=== PATIENT | female | born 1940 | race Caucasian/White ===

== ENCOUNTER 2019-08-02 13:49 | Outpatient (CLI) | payer MEDICARE, SELFPAY ==
--- NOTE | 2019-08-02 14:01 | XR_ITS ---
WS: [id number] Bone mineral density performed on a [facility], 08/02/2019 Clinical data: ASYMPTOMATIC MENOPAUSAL STATE, HYPOTHYROIDISM Findings: The first 4 lumbar vertebral bodies demonstrated the bone mineral density of 1.200 g/cm2 for a young adult T score of 0.2. Measurement of the left hip reveals a bone mineral density of 0.940 g/cm2 with a young adult T score of -0.5. Measurement of the right hip reveals the bone mineral density of 0.973 g/cm2 for young adult T score of -0.3. XR/XR DEXA axial skeleton* [id number] Impression: Normal bone mineral density of the lumbar spine and both hips.
== END 2019-08-02 13:50 | disposition home or self-care (01) ==
LOC: RADWPI 13:57
PROVIDERS: PCP Electrodiagnostic Medicine; Visit Provider Internal Medicine
DX: Z78.0 Asymptomatic menopausal state (principal)
CPT/HCPCS: 77080

== ENCOUNTER 2019-08-06 11:12 | Outpatient (CLI) | payer MEDICARE, SELFPAY ==
--- NOTE | 2019-08-06 11:20 | US_ITS ---
WS: [id number] Thyroid ultrasound, 08/06/2019 Clinical Data: HYPOTHYROIDISM Comparison: None. Findings: The right lobe of thyroid measures 4.3 cm x 1.6 cm x 1.5 cm. The left lobe measures 4.0 cm x 1.4 cm x 1.3 cm. There is a hypoechoic nodule in the posterior aspect of the left lobe measuring 0.71 x 0.77 x 1.07 cm. The echotexture is uniform but slightly diminished compared to the remainder of the left lobe. The isthmus measured 0.4 mm. The echotexture of the thyroid is uniform. No nodules, cyst or masses are seen. US/US thyroid [id number] Impression: 1. Negative right lobe and isthmus. 2. Small nodule in the posterior aspect of the left lobe with uniform echotextu re and well-defined border.
== END 2019-08-06 11:13 | disposition home or self-care (01) ==
LOC: RAD 11:15
PROVIDERS: PCP Electrodiagnostic Medicine; Visit Provider Electrodiagnostic Medicine
DX: E03.9 Hypothyroidism, unspecified (principal); E04.1 Nontoxic single thyroid nodule
CPT/HCPCS: 76536

== ENCOUNTER 2019-09-03 08:50 | Outpatient (CLI) | payer MEDICARE, SELFPAY ==
--- NOTE | 2019-09-03 08:45 | USCV_ITS ---
Cherrie Diaz Age: 79 Gender: F : 1940 Exam Date: 09/03/2019 09:08 Ordering Phys: Maxime Best MD ([email or web address]) Technologist: Colleen Prasad Exam Location: [facility] [place] Indication: PULMONARY HTN BP: 159 / 84 HR: 76 Rhythm: PVCs Technical Quality: Good MEASUREMENTS (Male / Female) Normal Values 2D ECHO LV Diastolic Diameter PLAX 4.6 cm 4.2 - 5.9 / 3.9 - 5.3 cm LV Systolic Diameter PLAX 3.1 cm LV Chamber Size 4.3 cm IVS Diastolic Thickness 0.8 cm 0.6 - 1.0 / 0.6 - 0.9 cm IVS Systolic Thickness 1.2 cm LVPW Diastolic Thickness 0.8 cm 0.6 - 1.0 / 0.6 - 0.9 cm LVPW Systolic Thickness 1.0 cm RV Chamber Size 3.1 cm LVOT Diameter 2.0 cm LV Ejection Fraction 2D Teich 61.5 % LV Ejection Fraction MOD 2C 51.7 % LV Ejection Fraction 2C AL 53.3 % LA Diameter 3.2 cm LA Width 3.5 cm LA Height 4.6 cm RA Width 2.7 cm RA Height 4.2 cm Aorta at Sinotubular Diameter 2.7 cm M-MODE LV Diastolic Diameter MM 5.2 cm 4.2 - 5.9 / 3.9 - 5.3 cm LV Systolic Diameter MM 2.8 cm LV Ejection Fraction MM Teich 77.7 % IVS Diastolic Thickness MM 0.5 cm 0.6 - 1.0 / 0.6 - 0.9 cm IVS Systolic Thickness MM 1.2 cm LVPW Diastolic Thickness MM 1.1 cm 0.6 - 1.0 / 0.6 - 0.9 cm LVPW Systolic Thickness MM 1.3 cm RV Diastolic Diameter MM 2.3 cm Aortic Annulus Diameter 2.5 cm LA Ao Ratio MM 1.3 MV E Point Septal Separation 0.3 cm DOPPLER AV Peak Velocity 130.0 cm/s LVOT Peak Velocity 97.0 cm/s AV Area Cont Eq vti 2.3 cm squared AV Area Cont Eq pk 2.3 cm squared MV Area PHT 3.5 cm squared Mitral E to A Ratio 0.7 MV E' Velocity 10.0 cm/s Mitral E to MV E' Ratio 8.1 Mitral E to LV E' Lateral Ratio 7.4 Mitral E to LV E' Septal Ratio 9.1 TR Peak Velocity 251.3 cm/s TR Peak Gradient 25.3 mmHg TR Mean Velocity 206.2 cm/s TR Mean Gradient 17.9 mmHg TR Velocity Time Integral 88.5 cm TV Peak E Velocity 64.0 cm/s Right Atrial Pressure 3.0 mmHg Pulmonary Artery Systolic Pressu 28.3 mmHg PV Peak Velocity 66.0 cm/s FINDINGS Left Ventricle Normal left ventricular cavity size. Normal left ventricular systolic function. No regional wall motion abnormalities. Left ventricular ejection fraction is estimated at 60 %. Grade I/IV diastolic dysfunction (abnormal relaxation filling pattern), normal to mildly elevated filling pressures. Right Ventricle The right ventricle is normal in size and function. Right Atrium The right atrium is normal in size. Left Atrium The left atrium is normal in size. Mitral Valve Structurally normal mitral valve without significant stenosis or prolapse. There is no mitral regurgitation. Aortic Valve Severe aortic valve calcification. No aortic valve stenosis. Trace aortic valve regurgitation. Tricuspid Valve Mild tricuspid valve regurgitation. Pulmonic Valve Structurally normal pulmonic valve without significant stenosis. There is no pulmonic regurgitation. Pericardium Normal pericardium without effusion. Aorta Normal ascending aorta dimension. CONCLUSIONS 1-Normal left ventricular cavity size. Normal left ventricular systolic function. No regional wall motion abnormalities. Left ventricular ejection fraction is estimated at 60 %. Grade I/IV diastolic dysfunction (abnormal relaxation filling pattern), normal to mildly elevated filling pressures. 2-Mild tricuspid valve regurgitation. 3-Structurally normal mitral valve without significant stenosis or prolapse. There is no mitral regurgitation. 4-Severe aortic valve calcification. No aortic valve stenosis. Trace aortic valve regurgitation. 5-There is no pericardial effusion. 6-Pulmonary artery systolic pressure is within normal limits. 7-Right atrial pressure is around 5 mm of mercury. 8-No significant change since the prior echocardiogram study of. Maxime Best MD (Electronically Signed) Final Date: 03 September 2019 17:49 S
--- NOTE | 2019-09-03 09:30 | PC.NURSE ---
STRESS TEST NOTE THIS NURSE HAD A FACE TO FACE CONVERSATION WITH DR DENNIS ABOUT THE ORDERED STRESS TEST. DR DENNIS STATED THAT THE TEST WAS ORDERED INCORRECTLY AND TO CHANGE IT FROM A PLAIN TREADMILL STRESS TEST TO A EXERCISE SESTAMIBI STRESS TEST (JOSEFA) LONG THE PATIENT CONSENTED. THE PATIENT WAS WALKING OUT OF THE ECHO ROOM AND SPOKE WITH DR DENNIS IN PERSON STATING IT WAS OK TO PROCEED WITH AN JOSEFA. BESSY FROM NUCLEAR MEDICINE WAS NOTIFIED.
--- NOTE | 2019-09-03 09:48 | ECG_ITS ---
NAME OF STUDY: EXERCISE SESTAMIBI STRESS TEST INDICATION: SOB, EXERCISE DATA: The patient was exercised by Torrey protocol. Baseline heart rate was 71 beats per minute. Baseline blood pressure was 109/81 millimeters of mercury. Target heart rate was 141 beats per minute. Maximum heart rate achieved was 128, which was 90 % of the target heart rate. Maximum blood pressure was 204/109 millimeters of mercury. Total exercise time was 5 minutes. Maximum METs achieved was 7.0, maximum VO2 was 24.5. The reason for ending the test was excellent effort achieved. The patient complained of ramus of breath during the stress test, which then resolved at the end of the test. ELECTROCARDIOGRAM: BASELINE: Sinus rhythm, normal axis, no significant ST-T changes at the baseline noted. EXERCISE: At the peak exercise level, No significant ST-T changes suggestive of ischemia noted. RECOVERY: During the recovery period, heart rate dropped appropriately. No significant ST-T changes in the recovery suggestive of ischemia noted. CONCLUSION: 1. Exercise capacity fair. 2. Heart rate response was appropriate. 3. Blood pressure response was hypertensive. 4. Symptoms not suggestive of ischemia. 5. Electrocardiogram portion of the stress test was not suggestive of ischemia. 6. Nuclear scan will be documented separately. Electronically Signed On 09-05-2019 19:14:24 CDT by Maxime Best M.D. [id number]
--- NOTE | 2019-09-03 09:48 | NMCV_ITS ---
NM vale perf SPECT r/s* [id number] Cherrie Diaz Age: 79 Gender: F : 1940 Exam Date: 09/03/2019 09:48 Ordering Phys: Maxime Best MD ([email or web address]) Technologist: NIKOLAS William Exam Location: [facility] Indications: SHORTNESS OF BREATH STRESS TEST [facility] IMAGE PROTOCOL Rest/Stress 1 Exercise Day Radiopharmaceutical Dose (mCi) Administration Site Administered by Rest: Tc-99m 10.6 IV NIKOLAS Blackmon Sestamirossy Stress:Tc-99m 32.2 IV NIKOLAS Blackmon Sestamirossy Rest: 03-Sep-2019 60 Discovery 630 Stress: 03-Sep-2019 15 Discovery 630 Radiopharmaceutical was injected at 85 % maximum heart rate. Images obtained in supine and prone position. SPECT RESULTS Technical Quality: Excellent Raw Data Analysis: Normal Image Corrections: No attenuation or motion correction applied Summed Stress Score: 0 Summed Rest Score: 0 Summed Difference Score: 0 PERFUSION FINDINGS FUNCTIONAL RESULTS (calculated via Gated SPECT) Stress Image LV EF (%): 74 Stress EDV (mL):65 TID: 0.98 Stress ESV (mL):17 Rest Image LV EF (%): 74 FUNCTIONAL FINDINGS: There is normal left ventricular systolic function. IMPRESSIONS Myocardial perfusion imaging is normal and low probability for obstructive coronary artery disease. EKG segment will be documented separately. Maxime Best MD (Electronically Signed) Final Date: 03 September 2019 17:52 S
[2019-09-03 09:53] VITALS: BMI 30.2
[2019-09-03 11:30] VITALS: BP 181/86; PULSE 81
== END 2019-09-03 08:51 | disposition home or self-care (01) ==
LOC: US 08:51
PROVIDERS: Family Provider Electrodiagnostic Medicine; PCP Electrodiagnostic Medicine; Visit Provider Internal Medicine Cardiovascular Disease
DX: I08.2 Rheumatic disorders of both aortic and tricuspid valves (principal); I49.3 Ventricular premature depolarization; R06.02 Shortness of breath; R07.9 Chest pain, unspecified
CPT/HCPCS: 78452; 93017; 93306; A9500

== ENCOUNTER 2020-05-17 07:37 | Emergency (ER) | payer MEDICARE, SELFPAY ==
--- NOTE | 2020-05-17 07:44 | XRR_ITS ---
PROCEDURE INFORMATION: Exam: XR Chest, 1 View Exam date and time: 05/17/2020 7:47 AM Age: 79 years old Clinical indication: Other: Weakness TECHNIQUE: Imaging protocol: XR of the chest Views: 1 view. COMPARISON: CR Chest 1 [place] [id number] 04/29/2019 6:24 PM FINDINGS: Lungs: Unremarkable. No consolidation. Pleural space: Unremarkable. No pleural effusion. No pneumothorax. Heart/Mediastinum: Unremarkable. No cardiomegaly. Bones/joints: Unremarkable. XR/XR chest 1V portable [id number] IMPRESSION: No acute findings.
--- NOTE | 2020-05-17 07:46 | ECG_ITS ---
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 Measurements Intervals [place] Rate: 69 P: 53 MA: 181 QRS: 5 QRSD: 88 T: 34 QT: 382 QTc: 411 Interpretive Statements SINUS RHYTHM POSSIBLE LEFT ATRIAL ENLARGEMENT [-0.1mV P WAVE IN V1/V2] Compared to ECG 04/29/2019 19:22:09 No significant changes Electronically Signed On 05-17-2020 11:15:09 ASSISTANT FRONT OFFICE MANAGER by Ronald Kate M.D. [id number]
[2020-05-17 07:49] VITALS: BP 162/84; PULSE 69; RESP 14; TEMP 36.5; O2SAT 95; BMI 28.3
[2020-05-17 07:50] VITALS: BP 148/91; BP 173/85; BP 178/80; PULSE 69; PULSE 76; PULSE 84
[2020-05-17 08:29] LABS: Basophils # 0.1 10^3/uL (0.0-0.1); Basophils % 0.9 %; Eosinophils # 0.4 10^3/uL (0.0-0.8); Eosinophils % 3.4 %; Hematocrit 51.7 % (37.0-47.0); Hemoglobin 16.5 g/dL (11.5-15.3); Lymphocytes # 3.7 10^3/uL (0.8-4.8); Lymphocytes % 32.6 %; Mean Corpuscular HGB Conc 31.9 g/dL (30.0-36.0); Mean Corpuscular Hemoglobin 30.7 pg (28.0-34.0); Mean Corpuscular Volume 96.3 fL (81-99); Mean Platelet Volume 11.2 fL (7.4-10.4); Monocytes # 0.9 10^3/uL (0.2-0.9); Neutrophils # 6.28 10^3/uL (1.8-7.7); Neutrophils % 54.6 %; Nucleated Red Blood Cells % 0 %; Platelet Count 323 10^3/cmm (130-400); Red Blood Count 5.37 10^6/uL (4.1-5.3); Red Cell Distribution Width 14.8 % (12.1-15.1); White Blood Count 11.5 10^3/uL (4.0-10.0)
--- NOTE | 2020-05-17 08:29 | ED_ITS ---
HPI - Weakness General: Chief complaint: Nausea/Vomiting/Diarrhea Stated complaint: WEAKNESS; NAUSEA Time Seen by Provider: 05/17/20 07:43 Source: patient and EMS Mode of arrival: EMS Limitations: no limitations History of Present Illness: HPI Narrative: Cherrie is a very nice 79-year-old female who comes in for waking up feeling weak and dizzy this morning. She states that she felt fine yesterday without any problems or illness. She woke up and she felt nauseated and just weak all over. Denies any fevers, chills, cough, sore throat, loss of sense of taste or smell or any other respiratory symptoms. Patient noticed that she just felt like at times she was so weak she could pass out. She noticed occasional irregular beat but denied any rapid palpitations, chest pain or heaviness pressure sensation in her chest. Patient has a history of bradycardia and she noticed her heart rate was in the 30s today but it has been slower than that in the past. She has been seen by Dr. Servin referred to an operations planner in [place] but no definitive diagnosis was made other than intermittent ventricular bigeminy. EMS brought the patient in and noted a heart rate anywhere from 30-60 but mostly in the 60s and shortly before arrival in the 70s here. She did have frequent PVCs. They checked her blood sugar and it was 174. Otherwise the patient states she feels better at this time just mildly weak. Associated symptoms: Reports nausea; Denies chest pain, chills, confusion, melena, diaphoresis, dysuria, easy bruising, fever(s), headache(s), syncope or vomiting Review of Systems Const: Denies: fever(s), chills, body aches, fatigue, malaise or diaphoresis Eyes: Denies: change in vision, blurry vision, photophobia, eye discomfort, eye discharge, eye redness or yellow eyes ENMT: Denies: throat pain, odynophagia, hoarseness, swelling of lips/tongue, ear or mastoid pain, ear discharge, change in hearing or nasal discharge Card: Reports: palpitations and pre-syncope; Denies: chest pain, irregular heart rhythm, edema, lightheadedness, syncope, dyspnea on exertion or orthopnea Resp: Denies: dyspnea, productive cough, non-productive cough, wheezing, hemoptysis or chest congestion GI: Reports: nausea; Denies: abdominal pain, vomiting, hematemesis, coffee ground emesis, heartburn, diarrhea, constipation, GI cramping, hematochezia or melena : Denies: flank pain, dysuria, urinary frequency, urinary urgency or hematuria Musc: Denies: neck pain, back pain, extremity pain, extremity swelling, joint pain, joint swelling, joint redness, joint warmth or joint stiffness Skin/Breast: Denies: rash, pruritus, erythema, skin pain or skin tenderness Neuro: Denies: headache(s), numbness in extremities, weakness in extremities, sensory changes, lack of coordination, difficulty walking, dizziness, vertigo, confusion, Slurred speech present or seizure-like activity J Luis/Lymph: Denies: easy bruising, easy bleeding, petechiae, purpura or enlarged lymph nodes All/Imm: Denies: urticaria, throat swelling, tongue swelling, facial swelling or acute wheezing PFSH ED PFSH: Medical History (Updated 05/17/20 @ 10:57 by Hanane Contreras) CAD (coronary artery disease) HTN (hypertension) Shortness of breath Ventricular bigeminy Family History Mother Myocardial infarction Heart disease Brother Pacemaker X2 Sister Heart disease Son CHF (congestive heart failure) Grandmother Cancer Social History Smoking and tobacco status: never smoked History of recent travel: No Physical Exam Const: COMMON NORMALS: no acute distress, patient oriented x3, no limitations and alert GENERAL APPEARANCE: cooperative HENMT: COMMON NORMALS: normocephalic, atraumatic, external ears normal, EAC's normal and Normal external nose present HEAD & SCALP: normal to inspection, normocephalic and atraumatic FACE & SINUS: normal facial exam and face symmetric NOSE: Normal external nose present and Normal nares present EXTERNAL EAR: Yes external ears normal EXTERNAL AUDITORY CANAL: EAC's normal MOUTH: Normal oral and palatal mucosa present, lip normal and tongue normal Eye: COMMON NORMALS: Equal, round and reactive pupils present and conjunctivae normal GENERAL EYE: appearance normal, both eyes and all related structures ALIGNMENT: Yes alignment normal PERIORBITAL: periorbital findings normal EYELID: eyelids normal CONJUNCTIVA: Yes conjunctivae normal SCLERA: sclerae normal PUPIL: Yes Equal, round and reactive pupils present Neck/C-Spine: COMMON NORMALS: full ROM, no lymphadenopathy, supple, no meningeal signs and no JVD GENERAL: Yes normal visual inspection and Yes trachea midline Chest: COMMONS NORMALS: normal inspection of the chest and normal palpation of entire chest wall Resp: COMMON NORMALS: normal respiratory effort, No retractions, No use of accessory muscles and clear to auscultation bilaterally EFFORT & INSPECTION: Yes able to speak in complete sentences and Yes symmetric chest movement AUSCULTATION: clear to auscultation bilaterally, no crackles, no rales, no rhonchi and no wheezes Cardio: COMMON NORMALS: no JVD, regular rate, regular rhythm, S1 normal heart sound present and S2 normal heart sound present RATE: regular rate RHYTHM: regular rhythm HEART SOUNDS: S1 normal heart sound present, S2 normal heart sound present, no click, no gallops, no murmurs and no rubs GI: COMMON NORMALS: Soft to palpation and No hepatosplenomegaly present PALPATION: Yes Soft to palpation, No Tenderness to palpation present (GI), No Guarding due to palpation present (GI), No Rigid due to palpation, Yes No hepatosplenomegaly present, No Hernia present, No Palpable mass present and No Pulsatile mass present : COMMON NORMALS: Yes no CVA tenderness BLADDER/KIDNEY EXAM: Yes no CVA tenderness EXTERNAL FEMALE EXAM: No Hernia present Back/Pelvis: COMMON NORMALS: no CVA tenderness, thoracic and lumbar spine normal to inspection, no thoracic nor lumbar tenderness and thoraco-lumbar ROM normal Extremity: COMMON NORMALS: normal to inspection, full ROM, capillary refill normal, no joint enlargement, no clubbing, cyanosis or edema and no calf tenderness Neuro: COMMON NORMALS: patient oriented x3, CN's II-XII intact bilaterally, moves all extremities, no focal motor deficits and no sensory deficits noted SENSORIUM/ORIENTATION: Yes alert MENINGEAL SIGNS: Yes no meningeal signs SPEECH: speech normal Psych: COMMON NORMALS: mental status grossly normal, Normal thought process present, cooperative, normal affect, speech normal and activity/motor behavior normal SPEECH: Yes normal speech THOUGHT PROCESS: Normal thought process present Skin: COMMON NORMALS: no rashes or lesions noted, turgor normal, no jaundice, no petechiae and no mottling GENERAL SKIN EXAM: no rashes or lesions noted and turgor normal Course Vital Signs: Vital signs: Vital Signs Temperature 97.7 F 05/17/20 07:49 Pulse Rate 78 05/17/20 11:27 Respiratory Rate 16 05/17/20 11:27 Blood Pressure 136/80 05/17/20 11:27 Pulse Oximetry 97 05/17/20 11:27 MDM - Weakness MDM Narrative: Medical decision making narrative: 1057 -the patient is feeling better and is ready to go home. She no longer feels weak. Her EKG is normal here. Patient has had urinary frequency but no other symptoms of UTI. She does have a contaminated specimen and I have recommended we perform a catheterized specimen to definitively rule in or out UTI but she refuses. I will therefore have to go ahead and treat her for UTI. It is possible that this is real that she will need treatment and could be causing her weakness. I see no evidence of acute coronary syndrome. She is never had chest pain or shortness of breath. She agrees to return should her symptoms change or worsen and she will follow-up with her doctor for recheck. She denies having any other questions or concerns. 1113 - Lab Data: Attestation: I reviewed the patient's lab results. Labs: Lab Results 05/17/20 05/17/20 05/17/20 Range/Units 07:45 07:45 07:45 WBC 11.5 H (4.0-10.0) 10^3/ uL RBC 5.37 H (4.1-5.3) 10^6/u L Hgb 16.5 H (11.5-15.3) g/dL Hct 51.7 H (37.0-47.0) % MCV 96.3 (81-99) fL MCH 30.7 (28.0-34.0) pg MCHC 31.9 (30.0-36.0) g/dL RDW 14.8 (12.1-15.1) % Plt Count 323 (130-400) 10^3/c mm MPV 11.2 H (7.4-10.4) fL Neut % (Auto) 54.6 % Lymph % (Auto) 32.6 % [place] % (Auto) 8.0 % Eos % (Auto) 3.4 % Baso % (Auto) 0.9 % Neut # (Auto) 6.28 (1.8-7.7) 10^3/u L Lymph # (Auto) 3.7 (0.8-4.8) 10^3/u L [place] # (Auto) 0.9 (0.2-0.9) 10^3/u L Eos # (Auto) 0.4 (0.0-0.8) 10^3/u L Baso # (Auto) 0.1 (0.0-0.1) 10^3/u L Nucleated RBC % (a uto) 0 % Nucleated RBCs # 0.0 /100WBC Sodium 137 (136-145) mmol/L Potassium 4.4 (3.5-5.1) mmol/L Chloride 99 (98-107) mmol/L Carbon Dioxide 26 (22-29) mmol/L Anion Gap 16.4 (5-19) BUN 32 H (8-23) mg/dL Creatinine 1.1 H (0.5-0.9) mg/dL GFR Calculation Not Reportable Glucose 133 H (65-115) mg/dL Calculated Osmolal ity 293 (285-295) mOsm/k g Calcium 10.2 (8.5-10.5) mg/dL Magnesium 2.4 H (1.7-2.3) mg/dL Total Bilirubin 0.3 (0.15-1.2) mg/dL AST 20 (0-32) U/L ALT 18 (0-33) U/L Alkaline Phosphata se 77 (35-105) IU/L Troponin T Baselin e 17 H (0-10) ng/L Troponin T 120 [place] (0-10) ng/L Delta Troponin T (0-10) ABS# Total Protein 7.6 (6.6-8.7) g/dL Albumin 4.7 (3.5-5.2) g/dL Globulin 2.9 (1.3-4.6) g/dL Lipase 53 (13-60) U/L TSH 7.29 H (0.27-4.20) uIU/ mL Free T4 1.00 (0.82-1.77) ng/d L Urine Color (Yellow) Urine Appearance (CLEAR) Urine pH (5-7) Ur Specific Gravit y (1.005-1.030) Urine Protein (Negative) Urine Glucose (UA) (Normal) Urine Ketones (Negative) Urine Blood (Negative) Urine Nitrate (Negative) Urine Bilirubin (Negative) Urine Urobilinogen (Negative) mg/dL Ur Leukocyte Subha ase (Negative) Urine RBC (0-2) /hpf Urine WBC (0-5) /hpf Ur Squamous Epith Cells (0-5) /hpf Amorphous Sediment Urine Bacteria (NONE) /hpf Urine Mucus /hpf 05/17/20 05/17/20 Range/Units 08:47 09:29 WBC (4.0-10.0) 10^3/ uL RBC (4.1-5.3) 10^6/u L Hgb (11.5-15.3) g/dL Hct (37.0-47.0) % MCV (81-99) fL MCH (28.0-34.0) pg MCHC (30.0-36.0) g/dL RDW (12.1-15.1) % Plt Count (130-400) 10^3/c mm MPV (7.4-10.4) fL Neut % (Auto) % Lymph % (Auto) % [place] % (Auto) % Eos % (Auto) % Baso % (Auto) % Neut # (Auto) (1.8-7.7) 10^3/u L Lymph # (Auto) (0.8-4.8) 10^3/u L [place] # (Auto) (0.2-0.9) 10^3/u L Eos # (Auto) (0.0-0.8) 10^3/u L Baso # (Auto) (0.0-0.1) 10^3/u L Nucleated RBC % (a uto) % Nucleated RBCs # /100WBC Sodium (136-145) mmol/L Potassium (3.5-5.1) mmol/L Chloride (98-107) mmol/L Carbon Dioxide (22-29) mmol/L Anion Gap (5-19) BUN (8-23) mg/dL Creatinine (0.5-0.9) mg/dL GFR Calculation Glucose (65-115) mg/dL Calculated Osmolal ity (285-295) mOsm/k g Calcium (8.5-10.5) mg/dL Magnesium (1.7-2.3) mg/dL Total Bilirubin (0.15-1.2) mg/dL AST (0-32) U/L ALT (0-33) U/L Alkaline Phosphata se (35-105) IU/L Troponin T Baselin e (0-10) ng/L Troponin T 120 [place] 14.86 H (0-10) ng/L Delta Troponin T -2.14 L (0-10) ABS# Total Protein (6.6-8.7) g/dL Albumin (3.5-5.2) g/dL Globulin (1.3-4.6) g/dL Lipase (13-60) U/L TSH (0.27-4.20) uIU/ mL Free T4 (0.82-1.77) ng/d L Urine Color Yellow (Yellow) Urine Appearance Hazy A (CLEAR) Urine pH 5 (5-7) Ur Specific Gravit y 1.005 (1.005-1.030) Urine Protein Neg (Negative) Urine Glucose (UA) Norm (Normal) Urine Ketones Negative (Negative) Urine Blood 2+ H (Negative) Urine Nitrate Negative (Negative) Urine Bilirubin Neg (Negative) Urine Urobilinogen Norm (Negative) mg/dL Ur Leukocyte Subha ase 2+ H (Negative) Urine RBC 10-15 H (0-2) /hpf Urine WBC 55-80 H (0-5) /hpf Ur Squamous Epith Cells 15-25 H (0-5) /hpf Amorphous Sediment Not Reportable Urine Bacteria 2+ H (NONE) /hpf Urine Mucus 1+ /hpf Imaging Data^: CXR: Attestation: I personally reviewed and interpreted this imaging study as follows: My impression: No acute cardiopulmonary findings. EKG Data^: EKG 1: Attestation: I personally reviewed and interpreted this EKG as follows: EKG interpretation date: 05/17/20 EKG interpretation time: 07:49 Interpretation: Normal sinus rhythm at 69 beats a minute, no blocks, normal intervals, no acute ST-T wave changes. EKG 2: Attestation: I personally reviewed and interpreted this EKG as follows: EKG interpretation date: 05/17/20 EKG interpretation time: 11:04 Interpretation: Normal sinus rhythm at 76 beats a minute, no blocks, normal axis, nonspecific ST T wave changes. PVCs noted. Discharge Plan Discharge Patient Disposition: Home Clinical Impression: Weakness generalized UTI (urinary tract infection) Qualifiers: Urinary tract infection type: site unspecified Hematuria presence: with hematuria Qualified Code(s): N39.0 - Urinary tract infection, site not specified Condition: Stable Prescriptions: New cefdinir 300 mg capsule 300 mg PO Q12H 10 Days Qty: 20 RF: 0 No Action aspirin [Adult Low Dose Aspirin] 81 mg tablet,delayed release (DR/EC) 81 mg PO DAILY RF: 0 lisinopril 2.5 mg tablet 2.5 mg PO BID 30 Days Qty: 60 RF: 6 Discharge Orders: Discharge Order (Routine); Ordered 05/17/20 Ordered By: Hanane Contreras Referrals: Timothy Weber DO [Primary Care Provider] - 1-3 days Discharge Diet: Advance as tolerated Discharge Activity: Increase activity as tolerated Patient Instructions: Urinary Tract Infection in Women (ED), Weakness (ED) Activity Restrictions/Additional Instructions: Please return to the ER immediately for any of the signs or symptoms listed on your discharge instruction sheets, worsening/changing of your symptoms, you are not getting better as quickly as expected, or for ANY other cause or concerns. Take your antibiotics as I have prescribed. Push oral fluids to help keep yourself hydrated. Return to the ER for increased weakness, new onset of chest pain, fever, vomiting, or for any other cause for concern. Coding Level of Care Code ED Senior Business Objects Developer for Rajwinder Fwd Exam Comprehensive
[2020-05-17] MEDS: sodium chloride 0.9% 1,000 ML 999 ML IV (08:54)
[2020-05-17 08:55] LABS: Troponin(5th) Baseline 17 ng/L (0-10)
[2020-05-17 09:26] LABS: Alanine Aminotransferase 18 U/L (0-33); Albumin Level 4.7 g/dL (3.5-5.2); Alkaline Phosphatase 77 IU/L (35-105); Anion Gap 16.4 (5-19); Aspartate Amino Transferase 20 U/L (0-32); Blood Urea Nitrogen 32 mg/dL (8-23); Calcium 10.2 mg/dL (8.5-10.5); Carbon Dioxide 26 mmol/L (22-29); Chloride 99 mmol/L (98-107); Globulin 2.9 g/dL (1.3-4.6); Glucose 133 mg/dL (65-115); Lipase 53 U/L (13-60); Magnesium 2.4 mg/dL (1.7-2.3); Osmolality Calculated 293 mOsm/kg (285-295); Potassium 4.4 mmol/L (3.5-5.1); Sodium 137 mmol/L (136-145); Thyroid Stimulating Hormone 7.29 uIU/mL (0.27-4.20); Total Bilirubin 0.3 mg/dL (0.15-1.2); Total Protein 7.6 g/dL (6.6-8.7)
[2020-05-17 10:17] LABS: Troponin 5 2HR 14.86 ng/L (0-10)
[2020-05-17 10:22] LABS: Troponin 5 2HR Delta -2.14 ABS# (0-10)
[2020-05-17 10:40] LABS: Urine Color Yellow (Yellow)
[2020-05-17 10:41] LABS: Add Urine Microscopic? YES; Bilirubin Urine Neg (Negative); Blood Urine 2+ (Negative); Glucose Urine UA Norm (Normal); Ketones Urine Negative (Negative); Leukocyte Esterase Urine 2+ (Negative); Nitrate Urine Negative (Negative); Protein Urine Neg (Negative); Specific Gravity, Urine 1.005 (1.005-1.030); Urine Appearance Hazy (CLEAR); Urobilinogen Urine Norm (Negative); pH Urine 5 (5-7)
[2020-05-17 10:43] LABS: Add Urine Culture? No; Bacteria Urine 2+ /hpf; Mucus Urine 1+ /hpf; Squamous Epithelial Cell Urine 15-25 /hpf (0-5); WBC Urine 55-80 /hpf (0-5)
[2020-05-17] MEDS: cefTRIAXone 1,000 MG in sodium chloride 0.9% (plus) 50 ML 100 MG IV (10:45)
[2020-05-17 11:27] VITALS: BP 136/80; PULSE 78; RESP 16; O2SAT 97
--- NOTE | 2020-05-17 13:46 | ECG_ITS ---
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 Measurements Intervals [place] Rate: 76 P: 49 IA: 174 QRS: -1 QRSD: 89 T: 13 QT: 394 QTc: 445 Interpretive Statements SINUS RHYTHM WITH OCCASIONAL VENTRICULAR PREMATURE COMPLEXES POSSIBLE LEFT ATRIAL ENLARGEMENT [-0.1mV P WAVE IN V1/V2] Compared to ECG 05/17/2020 07:49:17 Ventricular premature complex(es) now present Electronically Signed On 05-17-2020 18:55:55 LOOP SEWER by Ronald Kate M.D. [id number]
== END 2020-05-17 11:27 | disposition home or self-care (01) ==
PROVIDERS: Emergency Provider Emergency Medicine; PCP Electrodiagnostic Medicine
DX: N39.0 Urinary tract infection, site not specified (principal); R53.1 Weakness; Z79.82 Long term (current) use of aspirin; I25.10 Atherosclerotic heart disease of native coronary artery without angina pectoris; I10 Essential (primary) hypertension
CPT/HCPCS: 12345; 36415; 71045; 80053; 81001; 83690; 83735; 84439; 84443; 84484; 85025; 87086; 93005; 96365; 99283; 99284; J0696; J7030

== ENCOUNTER 2020-06-09 11:54 | Outpatient (CLI) | payer MEDICARE, SELFPAY ==
--- NOTE | 2020-06-09 12:11 | XR_ITS ---
WS: [id number] Lumbar spine, 3 views, 06/09/2020 Clinical Data: CHRONIC LUMBAR BACK PAIN Comparison: None. Findings: No compression fractures are seen. There is a levorotoscoliosis. There is anterior spurring of the L1 -L4 vertebral bodies The transverse processes and SI joints are normal.There is a subluxation of 0.4 cm of L4 on L5. There is loss of vertebral body height of the L1 vertebral body which may be an old f racture of the superior cortex. No disc space narrowing is seen. XR/XR lumbar spine 2-3V* [id number] Impression: 1. Levoscoliosis. 2. Osteoarthritis of L1-L4. 3. 0.4 cm subluxation of L4 on L5. 4. Slight loss of vertebral body height of L1 with an old superior cortical fr acture.
--- NOTE | 2020-06-09 12:11 | XR_ITS ---
WS: [id number] Right knee, 3 views, 06/09/2020 Clinical Data: ACUTE R KNEE PAIN Comparison: None. Findings: There is medial joint compartment narrowing with small spurs of the medial femoral condyle and medial tibial plateau. No fractures or dislocations are seen. There is a small spur of the posterior superior patella. The s oft tissues are normal. 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
== END 2020-06-09 11:55 | disposition home or self-care (01) ==
PROVIDERS: PCP Electrodiagnostic Medicine; Visit Provider Electrodiagnostic Medicine
DX: M47.816 Spondylosis without myelopathy or radiculopathy, lumbar region (principal); M17.11 Unilateral primary osteoarthritis, right knee
CPT/HCPCS: 72100; 73562

== ENCOUNTER 2020-07-06 13:18 | Outpatient (CLI) | payer MEDICARE, SELFPAY ==
--- NOTE | 2020-07-06 13:59 | MR_ITS ---
WS: [id number] MRI RIGHT KNEE HISTORY: DERANGEMENT OF ANTERIOR HORN OF MEDIAL MENISCUS LT KNEE COMPARISON: Knee radiograph 06/09/2020. Anterior cruciate ligament: Intact. Posterior cruciate ligament: Intact. Medial collateral ligament: Increased T2 signal both sides of the MCL. MCL is being displaced from th e joint line by an extruded meniscus and osteophyte disease. No tear. Posterior lateral corner structures: Intact. Medial menisci: There is no body of the meniscus. Meniscus is extruded and there is no meniscal body within the central joint space consistent with a torn and extruded meniscus. Lateral meniscus: Intact. Normal signal, size and shape. Extensor mechanism: Distal quadriceps tendon and patellar tendons are intact. Fluid and soft tissue: Moderate to large joint effusion. Soft tissue edema surrounding the knee. Lobu lated Thomposn's cyst extends over a length of 4.6 cm. Osseous and articular structures: Patellofemoral compartment: Superficial defects within a large portion of the cartilage over the late ral patellar facet. No marrow edema. Medial compartment: Marked narrowing of the medial compartment. There is near bone upon bone with los s of the cartilage and marrow edema on both sides of the joint. Extruded meniscus contacts and displa malena the MCL. Lateral compartment: Negative. MR/MR knee RT wo con* [id number] IMPRESSION: 1. Moderate to severe internal derangement medial compartment. Meniscal extrus ion from the joint line, loss of cartilage, marrow edema and osteophytes. 2. Lateral patellar facet cartilage defects. 3. Large suprapatellar joint effusion and soft tissue edema around the knee. 4. Moderate-sized lobulated Thompson's cyst.
== END 2020-07-06 13:19 | disposition home or self-care (01) ==
LOC: RADWPI 13:23
PROVIDERS: PCP Electrodiagnostic Medicine; Visit Provider Electrodiagnostic Medicine
DX: M23.212 Derangement of anterior horn of medial meniscus due to old tear or injury, left knee (principal); M71.21 Synovial cyst of popliteal space [Baker], right knee; M25.461 Effusion, right knee
CPT/HCPCS: 73721

== ENCOUNTER 2020-10-28 11:28 | Outpatient (RCR) | payer MEDICARE, SELFPAY | END 2020-11-23 23:59 | disposition home or self-care (01) | LOC: SPT 11:28 | PROVIDERS: PCP Electrodiagnostic Medicine; Referring Provider Orthopaedic Surgery; Visit Provider Orthopaedic Surgery | DX: Z47.1 Aftercare following joint replacement surgery (principal); Z96.651 Presence of right artificial knee joint | CPT/HCPCS: 97110; 97161 ==

== ENCOUNTER 2020-11-24 06:00 | Outpatient (RCR) | payer MEDICARE, SELFPAY | END 2020-12-23 23:59 | disposition home or self-care (01) | LOC: SPT 06:00 | PROVIDERS: PCP Electrodiagnostic Medicine; Referring Provider Orthopaedic Surgery; Visit Provider Orthopaedic Surgery | DX: Z47.1 Aftercare following joint replacement surgery (principal); Z96.651 Presence of right artificial knee joint | CPT/HCPCS: 97110 ==

== ENCOUNTER 2023-05-06 04:14 | Emergency (ER) | payer MEDICARE, SELFPAY ==
[2023-05-06 04:20] VITALS: BP 169/93; PULSE 82; RESP 16; TEMP 36.5; O2SAT 98
[2023-05-06 04:30] VITALS: BP 169/93; PULSE 79; RESP 20; O2SAT 96
--- NOTE | 2023-05-06 05:42 | ED_ITS ---
HPI - Skin/Abscess/Foreign Bdy General: Chief complaint: Skin/Abscess/Foreign Body Stated complaint: Allergic Reaction Time Seen by Provider: 05/06/23 04:42 History of Present Illness: 82-year-old female with an itchy rash mainly on her trunk since . This will be day 3. No increased trouble breathing. No vomiting. No significant diarrhea. No swelling of the face or tongue. She does not know the cause. She did eat some new food on , a new sauce at [employer]. Associated symptoms: Deny chills, fever(s), nausea or vomiting Review of Systems Const: Denies: fever(s), chills or body aches Eyes: Denies: change in vision Card: Denies: chest pain or palpitations Resp: Denies: dyspnea, productive cough, non-productive cough or wheezing GI: Denies: abdominal pain, nausea, vomiting, diarrhea or hematochezia : Denies: difficulty voiding Skin/Breast: Reports: rash, pruritus and erythema Neuro: Denies: headache(s), weakness in extremities, dizziness or confusion PFSH ED PFSH: Medical History CAD (coronary artery disease) Hypertension Diagnosed in 2017 and is being managed by her primary care provider. She does not have a jewel flat surfacer however did see Dr. Servin in the past No pertinent past medical history Denies diabetes, asthma, seizures, DVT/PE PCP: Dr. Weber Surgical History Hx of tonsillectomy As a child S/P excision of ganglion cyst she had ganglion cysts removed from both the right and left wrist S/P eye surgery Had bilateral surgery with placement of lens to correct her vision in 2000. S/P hysterectomy 04/03/2014- [facility], [facility] for complex endometrial hyperplasia on an endometrial polyp. Done by Dr. Hollis at [facility] [place]. No immediate operative complications. pathology showed simple hyperplasia and endometrium but was otherwise normal. No further intervention needed S/P right knee arthroscopy had right knee surgery for torn meniscus in 2012 Family History Mother Heart disease Hyperlipidemia Hypertension Brother Heart disease Sister Heart disease Diabetes Son Heart disease Stroke Denies family history of Colon cancer Ovarian cancer Breast cancer Uterine cancer Thyroid disease Physical Exam Const: COMMON NORMALS: no acute distress GENERAL APPEARANCE: cooperative; not ill appearing and not frail appearing HENMT: COMMON NORMALS: normocephalic, atraumatic and Normal external nose present HEAD & SCALP: normocephalic and atraumatic FACE & SINUS: normal facial exam and face symmetric NOSE: Normal external nose present Eye: COMMON NORMALS: Equal, round and reactive pupils present and EOMs intact bilaterally PUPIL: Yes Equal, round and reactive pupils present Neck/C-Spine: GENERAL: Yes trachea midline Chest: CHEST: Yes Symmetrical chest wall rise Resp: COMMON NORMALS: normal respiratory effort, No retractions, No use of accessory muscles and clear to auscultation bilaterally AUSCULTATION: clear to auscultation bilaterally Cardio: COMMON NORMALS: regular rate and regular rhythm RATE: regular rate RHYTHM: regular rhythm GI: COMMON NORMALS: Normal to inspection, nondistended, normoactive bowel sounds present Extremity: COMMON NORMALS: no pedal edema Neuro: MAMADOU COMA SCALE: document GCS findings [place] coma scale eye opening: Spontaneous [place] coma scale verbal response: Orientated Mamadou coma scale motor response: Obey commands Mamadou coma scale total score: 15 SENSORY EXAM: Yes extremities (intact) Psych: COMMON NORMALS: speech normal SPEECH: Yes normal speech Skin: GENERAL SKIN EXAM: other (Truncal urticaria) Course Vital Signs: Vital signs: Vital Signs Temperature 97.7 F 05/06/23 04:20 Pulse Rate 84 05/06/23 06:15 Respiratory Rate 20 H 05/06/23 06:15 Blood Pressure 168/80 05/06/23 06:15 Pulse Oximetry 98 05/06/23 06:15 Oxygen Delivery Me thod Room Air 05/06/23 04:20 MDM - Skin/Abscess/Foreign Bdy Medicial Decision Making Urticaria present. No systemic symptoms or angioedema symptoms. She will be allowed discharge. Antihistamines, steroid taper, etc. No radiology studies performed this visit Discharge Plan Discharge Patient Disposition: Home Clinical Impression: Urticaria Condition: Stable Prescriptions: New Medrol (Isra) 4 mg tablets,dose pack See Rx Instructions .ROUTE .COMPLEX Qty: 21 0RF Rx Instructions: orally per package directions Benadryl 25 mg capsule 25 mg PO TID PRN (Reason: allergic reaction) Qty: 14 0RF cetirizine 10 mg tablet 10 mg PO DAILY PRN (Reason: allergy symptoms) Qty: 30 0RF No Action aspirin [Adult Low Dose Aspirin] 81 mg tablet,delayed release (DR/EC) 81 mg PO DAILY metoprolol succinate 25 mg tablet extended release 24 hr 12.5 mg PO DAILY Discharge Orders: Discharge ED (Routine); Ordered 05/06/23 Ordered By: Jef Day Referrals: Timothy Weber DO [Primary Care Provider] - 1-3 days Patient Instructions: Urticaria (ED), Opioid Safety, Pain Management Activity Restrictions/Additional Instructions: Follow-up with your primary doctor. Return for worsening symptoms despite treatment such as shortness of breath, throat swelling, chest discomfort, worsening itch, other concerns. Medication as directed. This will prevent rebound reaction from happening. Coding Level of Care Code ED Conveyor Belt Repairer for Rajwinder Peterson
[2023-05-06] MEDS: methylPREDNISolone sod succ 125 mg SDV IM (06:02)
[2023-05-06] MEDS: famotidine 20 mg Tablet 40 MG PO (06:02)
[2023-05-06] MEDS: diphenhydrAMINE 25 mg Capsule PO (06:02)
[2023-05-06 06:15] VITALS: BP 168/80; PULSE 84; RESP 20; O2SAT 98
== END 2023-05-06 06:16 | disposition home or self-care (01) ==
PROVIDERS: Emergency Provider Emergency Medicine; PCP Electrodiagnostic Medicine
DX: L50.9 Urticaria, unspecified (principal); Z79.82 Long term (current) use of aspirin; I25.10 Atherosclerotic heart disease of native coronary artery without angina pectoris; I10 Essential (primary) hypertension
CPT/HCPCS: 96372; 99284; J2930

== ENCOUNTER → 2023-10-10 14:43 | Outpatient (BNVA) | payer MEDICARE, SELFPAY | PROVIDERS: PCP Electrodiagnostic Medicine; Visit Provider Nurse Practitioner Women's Health | DX: N93.9 Abnormal uterine and vaginal bleeding, unspecified (principal); N89.8 Other specified noninflammatory disorders of vagina | CPT/HCPCS: 87624 ==

== ENCOUNTER → 2024-02-17 18:27 | Outpatient (BNVA) | payer MEDICARE, SELFPAY | PROVIDERS: PCP Electrodiagnostic Medicine; Visit Provider Emergency Medicine | DX: J02.9 Acute pharyngitis, unspecified (principal) | CPT/HCPCS: 87071; 87880 ==

== ENCOUNTER → 2024-10-29 08:37 | Outpatient (BNVA) | payer MEDICARE, SELFPAY | PROVIDERS: PCP Electrodiagnostic Medicine; Visit Provider Internal Medicine Cardiovascular Disease | DX: I48.91 Unspecified atrial fibrillation (principal); I49.8 Other specified cardiac arrhythmias; I49.3 Ventricular premature depolarization; I47.20 Ventricular tachycardia, unspecified; I49.1 Atrial premature depolarization; I47.10 Supraventricular tachycardia, unspecified | CPT/HCPCS: 93242 ==

== ENCOUNTER → 2025-01-29 14:14 | Outpatient (BNVA) | payer MEDICARE, SELFPAY | PROVIDERS: PCP Electrodiagnostic Medicine; Visit Provider Internal Medicine Cardiovascular Disease | DX: R06.02 Shortness of breath (principal); R00.1 Bradycardia, unspecified; I49.3 Ventricular premature depolarization; I10 Essential (primary) hypertension; I25.10 Atherosclerotic heart disease of native coronary artery without angina pectoris; R07.89 Other chest pain; R00.2 Palpitations; Z79.82 Long term (current) use of aspirin; R01.1 Cardiac murmur, unspecified | CPT/HCPCS: 99204 ==

== ENCOUNTER 2025-03-03 06:38 | Outpatient (CLI) | payer MEDICARE, SELFPAY ==
--- NOTE | 2025-03-03 07:00 | USCV_ITS ---
Joe Cherrie Age: 84 Gender: F : 1940 Exam Date: 03/03/2025 06:48 Ordering Phys: Maxime Best MD ([email or web address]) Technologist: Exam Location: [facility] [place] Indication: cp sob BP: 120 / 70 HR: 70 Rhythm: Sinus Technical Quality: Adequate MEASUREMENTS (Male / Female) Normal Values 2D ECHO LV Diastolic Diameter PLAX 3.6 cm 4.2 - 5.9 / 3.9 - 5.3 cm IVS Diastolic Thickness 1.3 cm 0.6 - 1.0 / 0.6 - 0.9 cm IVS Systolic Thickness 1.6 cm LVPW Diastolic Thickness 1.1 cm 0.6 - 1.0 / 0.6 - 0.9 cm LVPW Systolic Thickness 1.3 cm LVOT Diameter 2.0 cm LV Ejection Fraction 2D Teich 69.3 % LV Ejection Fraction MOD 4C 63.3 % LV Ejection Fraction MOD 2C 64.4 % LV Ejection Fraction 2C AL 64.1 % LA Diameter 3.1 cm RA Systolic Volume 4C AL 43.3 ml RA Systolic Volume 4C MOD 39.8 ml Aorta at Sinotubular Diameter 2.6 cm IVC Diameter 2.2 cm M-MODE LA Ao Ratio MM 1.4 AV Cusp Separation MM 2.3 cm DOPPLER AV Peak Velocity 166.0 cm/s AV Area Cont Eq vti 1.6 cm squared AV Area Cont Eq pk 1.5 cm squared MV Peak Velocity 105.0 cm/s MV Area PHT 3.1 cm squared Mitral E to A Ratio 0.9 TV Peak Velocity 208.0 cm/s TR Peak Velocity 256.0 cm/s TR Peak Gradient 26.2 mmHg TV Peak E Velocity 97.0 cm/s PV Peak Velocity 98.0 cm/s FINDINGS Left Ventricle Normal left ventricular size, systolic function and wall thickness, with no regional wall motion abnormalities. Left ventricular ejection fraction is estimated at 60 %. Grade I/IV diastolic dysfunction (abnormal relaxation filling pattern), normal to mildly elevated filling pressures. Right Ventricle The right ventricle is normal in size and function. Right Atrium The right atrium is normal in size. Left Atrium Mildly increased left atrial size. Mitral Valve Mildly thickened mitral valve. No mitral valve stenosis.Mild mitral valve regurgitation. Aortic Valve Moderate aortic valve calcification. No aortic valve stenosis. No aortic valve regurgitation. Tricuspid Valve No tricuspid valve stenosis. Mild tricuspid valve regurgitation. Pulmonic Valve Structurally normal pulmonic valve without significant stenosis. There is no pulmonic regurgitation. Pericardium Normal pericardium without effusion. Aorta Normal ascending aorta dimension. IVC The inferior vena cava appears normal. CONCLUSIONS Normal left ventricular size, systolic function and wall thickness, with no regional wall motion abnormalities. Left ventricular ejection fraction is estimated at 60 %. Grade I/IV diastolic dysfunction (abnormal relaxation filling pattern), normal to mildly elevated filling pressures. Mildly thickened mitral valve. No mitral valve stenosis.Mild mitral valve regurgitation. Moderate aortic valve calcification. No aortic valve stenosis. No aortic valve regurgitation. There is no pericardial effusion. Right atrial pressure is 5 around mm of mercury. Maxime Best MD (Electronically Signed) Final Date: 03 March 2025 10:42 S
== END 2025-03-03 06:39 | disposition home or self-care (01) ==
LOC: RAD 06:38
PROVIDERS: PCP Electrodiagnostic Medicine; Visit Provider Internal Medicine Cardiovascular Disease
DX: R00.2 Palpitations (principal); R01.1 Cardiac murmur, unspecified; I08.0 Rheumatic disorders of both mitral and aortic valves
CPT/HCPCS: 93306